=== PATIENT | male | born 1940 | race Caucasian/White ===

== ENCOUNTER 2023-02-12 13:35 | Inpatient (IN) | payer MEDICARE, BC ==
[2023-02-12 13:52] LABS: BASOPHILS ABSOLUTE AUTO 0.07 10^3/uL (0.00-0.50); BASOPHILS PERCENT AUTO 0.8 % (0-1); EOSINOPHILS ABSOLUTE AUTO 0.22 10^3/uL (0.00-1.50); EOSINOPHILS PERCENT AUTO 2.4 % (0-6); HEMATOCRIT 29.5 % (42.0-52.0); HEMOGLOBIN 9.2 g/dL (14.0-18.0); IMMATURE GRAN ABSOLUTE AUTO 0.01 10^3/uL (0.00-0.49); IMMATURE GRAN PERCENT AUTO 0.1 % (0.0-4.9); LYMPHOCYTES ABSOLUTE AUTO 0.79 10^3/uL (0.60-5.00); LYMPHOCYTES PERCENT AUTO 8.7 % (24-44); MEAN CORPUSCULAR HGB CONC 31.2 g/dL (32.0-36.0); MEAN CORPUSCULAR VOLUME 89.9 fL (83.0-97.0); MONOCYTES ABSOLUTE AUTO 0.65 10^3/uL (0.00-1.50); MONOCYTES PERCENT AUTO 7.1 % (0-10); NEUTROPHILS ABSOLUTE AUTO 7.39 x10^3/uL (1.80-8.00); NEUTROPHILS PERCENT AUTO 80.9 % (41-71); PLATELET COUNT,PLT 286 10^3/uL (150-400); RED BLOOD CELL COUNT 3.28 x10^6/uL (4.50-6.00); WHITE BLOOD CELL COUNT,WBC 9.1 10^3/uL (4.0-11.0)
[2023-02-12 14:08] LABS: ALANINE AMINOTRANSFERASE,ALT 40 U/L (12-78); ALBUMIN 2.3 g/dL (3.4-5.0); ALKALINE PHOSPHATASE 101 U/L (46-116); ASPARTATE AMNIOTRANSFERASE,AST 34 U/L (15-37); BILIRUBIN TOTAL 0.2 mg/dL (0.0-1.0); BLOOD UREA NITROGEN,BUN 60 mg/dL (7-18); C-REACTIVE PROTEIN 0.74 mg/dL (<=0.30); CALCIUM 8.1 mg/dL (8.4-10.1); CARBON DIOXIDE,CO2 24 mmol/L (21-32); CHLORIDE,CL 111 mEq/L (98-106); GLUCOSE RANDOM 153 mg/dL (75-99); POTASSIUM,K 4.2 mEq/L (3.5-5.0); PRO B-TYPE NATRIUR PEPT,BNPPRO 1341 pg/mL (0-1000); SODIUM,NA 143 mEq/L (136-145)
[2023-02-12 14:21] LABS: ESTIMATED GFR 14 mL/min (>=60)
[2023-02-12] MEDS ORDERED: Polyethylene Glycol 3350 Powder 17 GM Packet PO PRN (15:14)
[2023-02-12] MEDS ORDERED: Acetaminophen 325 MG Tab PO PRN (15:14)
[2023-02-12] MEDS ORDERED: Ondansetron 4 MG Tab.DIS PO PRN (15:14)
[2023-02-12] MEDS ORDERED: Ondansetron 4 MG/2 ML SDV IV PRN (15:14)
[2023-02-12] MEDS ORDERED: Docusate Sodium 100 MG Cap PO PRN (15:14)
[2023-02-12] MEDS ORDERED: Sodium Chloride 0.9% 1,000 ML IV ONE (15:30)
[2023-02-12 16:00] LABS: APPEARANCE,URINE CLOUDY (CLEAR); BILIRUBIN,URINE NEGATIVE (NEGATIVE); COLOR,URINE YELLOW (YELLOW); GLUCOSE,URINE 100 mg/dL (NEGATIVE); KETONES,URINE NEGATIVE (NEGATIVE); LEUKOCYTE ESTERASE,URINE NEGATIVE (NEGATIVE); NITRITE,URINE NEGATIVE (NEGATIVE); OCCULT BLOOD,URINE LARGE (NEGATIVE); PH,URINE 5.5 (4.5-8.0); PROTEIN,URINE >=300 mg/dL (NEGATIVE); UROBILINOGEN,URINE 0.2 EU/dL (0.2-1.0)
[2023-02-12] MEDS: Furosemide 20 MG/2 ML VIAL IVPUSH SCH (16:06)
[2023-02-12] MEDS: cefTRIAXone 1 GM Vial IVPUSH SCH (16:11)
[2023-02-12] MEDS: Azithromycin 250 MG Tab PO SCH (16:11)
[2023-02-12 17:05] LABS: RBC,URINE >100 /HPF (0-5)
[2023-02-12 17:06] LABS: BACTERIA,URINE MODERATE /HPF (NOT SEEN); SQUAMOUS EPITHELIAL CELLS,UR NOT SEEN /HPF (NOT SEEN)
[2023-02-12] MEDS ORDERED: Albuterol 6.7 GM Inhaler INH PRN (17:17)
[2023-02-12] MEDS: Albuterol/Ipratropium 3.0-0.5 MG/3 ML Neb Soln NEB PRN (18:36)
[2023-02-12] MEDS ORDERED: Ipratropium 0.02% 0.5 MG/2.5 ML Neb Soln INH SCH (20:00)
[2023-02-12] MEDS ORDERED: Formoterol/Mometasone 100-5 MCG 8.8 GM Inhaler IH SCH (20:00)
[2023-02-12] MEDS: atorvaSTATin 20 MG Tab PO SCH (20:10)
[2023-02-13] MEDS: Pantoprazole 40 MG Tab.CR PO SCH (06:37)
[2023-02-13] MEDS ORDERED: ALBUTEROL INH PRN (08:11)
[2023-02-13] MEDS: Aspirin 325 MG Tab PO SCH (08:20)
[2023-02-13] MEDS: Enoxaparin 30 MG/0.3 ML Syringe SUBCUT SCH (08:20)
[2023-02-13] MEDS: Azithromycin 250 MG Tab PO SCH (08:20)
[2023-02-13 08:21] LABS: BASOPHILS ABSOLUTE AUTO 0.07 10^3/uL (0.00-0.50); BASOPHILS PERCENT AUTO 0.9 % (0-1); EOSINOPHILS ABSOLUTE AUTO 0.29 10^3/uL (0.00-1.50); EOSINOPHILS PERCENT AUTO 3.6 % (0-6); HEMATOCRIT 25.8 % (42.0-52.0); IMMATURE GRAN ABSOLUTE AUTO 0.01 10^3/uL (0.00-0.49); IMMATURE GRAN PERCENT AUTO 0.1 % (0.0-4.9); LYMPHOCYTES ABSOLUTE AUTO 0.86 10^3/uL (0.60-5.00); LYMPHOCYTES PERCENT AUTO 10.8 % (24-44); MEAN CORPUSCULAR VOLUME 90.2 fL (83.0-97.0); MONOCYTES ABSOLUTE AUTO 0.65 10^3/uL (0.00-1.50); MONOCYTES PERCENT AUTO 8.2 % (0-10); NEUTROPHILS ABSOLUTE AUTO 6.07 x10^3/uL (1.80-8.00); NEUTROPHILS PERCENT AUTO 76.4 % (41-71); PLATELET COUNT,PLT 244 10^3/uL (150-400); RED BLOOD CELL COUNT 2.86 x10^6/uL (4.50-6.00)
[2023-02-13] MEDS: Furosemide 20 MG Tab PO SCH (08:21)
[2023-02-13] MEDS: Escitalopram 10 MG Tab PO SCH (08:21)
[2023-02-13] MEDS: amLODIPine 10 MG Tab PO SCH (08:21)
[2023-02-13] MEDS: Multivitamin Tab PO SCH (08:21)
[2023-02-13 08:34] LABS: CALCIUM 7.9 mg/dL (8.4-10.1); EST CRCL DRUG DOSING (CG) 15.2 mL/min; MAGNESIUM 1.7 mg/dL (1.8-2.4)
[2023-02-13 08:35] LABS: CREATININE 3.7 mg/dL (0.7-1.3)
[2023-02-13] MEDS: UMECLIDINIUM 62.5 MCG INH SCH (09:09)
[2023-02-13] MEDS: BUDESONIDE INH SCH ×2 (09:09→20:42)
[2023-02-13] MEDS: FORMOTEROL INH SCH ×2 (09:09→20:42)
[2023-02-13] MEDS ORDERED: Furosemide 40 MG/4 ML VIAL IVPUSH ONE (10:22)
[2023-02-13] MEDS ORDERED: Albumin Human 25 GM in Premix Bag 1 BAG IV ONE (10:22)
[2023-02-13] MEDS: Lactated Ringers 1,000 ML IV SCH ×2 (10:41→20:08)
[2023-02-13] MEDS: cefTRIAXone 1 GM Vial IVPUSH SCH (16:36)
[2023-02-13] MEDS: Albuterol/Ipratropium 3.0-0.5 MG/3 ML Neb Soln NEB PRN (16:36)
[2023-02-13] MEDS: Furosemide 20 MG/2 ML VIAL IVPUSH SCH (16:36)
[2023-02-13] MEDS: atorvaSTATin 20 MG Tab PO SCH (19:26)
[2023-02-13] MEDS ORDERED: Furosemide 20 MG/2 ML VIAL IVPUSH ONE (19:38)
[2023-02-14] MEDS: Pantoprazole 40 MG Tab.CR PO SCH (06:00)
[2023-02-14 07:39] LABS: BASOPHILS ABSOLUTE AUTO 0.07 10^3/uL (0.00-0.50); EOSINOPHILS ABSOLUTE AUTO 0.31 10^3/uL (0.00-1.50); EOSINOPHILS PERCENT AUTO 4.4 % (0-6); HEMATOCRIT 24.1 % (42.0-52.0); HEMOGLOBIN 7.6 g/dL (14.0-18.0); IMMATURE GRAN ABSOLUTE AUTO 0.02 10^3/uL (0.00-0.49); IMMATURE GRAN PERCENT AUTO 0.3 % (0.0-4.9); LYMPHOCYTES ABSOLUTE AUTO 0.93 10^3/uL (0.60-5.00); LYMPHOCYTES PERCENT AUTO 13.2 % (24-44); MEAN CORPUSCULAR HEMOGLOBIN 28.4 pg (27.0-32.0); MEAN CORPUSCULAR HGB CONC 31.5 g/dL (32.0-36.0); MEAN CORPUSCULAR VOLUME 89.9 fL (83.0-97.0); MONOCYTES ABSOLUTE AUTO 0.53 10^3/uL (0.00-1.50); MONOCYTES PERCENT AUTO 7.5 % (0-10); NEUTROPHILS ABSOLUTE AUTO 5.17 x10^3/uL (1.80-8.00); NEUTROPHILS PERCENT AUTO 73.6 % (41-71); PLATELET COUNT,PLT 218 10^3/uL (150-400); RED BLOOD CELL COUNT 2.68 x10^6/uL (4.50-6.00)
[2023-02-14 07:49] LABS: EST CRCL DRUG DOSING (CG) 15.23 mL/min; MAGNESIUM 1.7 mg/dL (1.8-2.4); POTASSIUM,K 3.7 mEq/L (3.5-5.0)
[2023-02-14] MEDS: Multivitamin Tab PO SCH (07:59)
[2023-02-14] MEDS: Escitalopram 10 MG Tab PO SCH (07:59)
[2023-02-14] MEDS: Azithromycin 250 MG Tab PO SCH (08:00)
[2023-02-14] MEDS: Aspirin 325 MG Tab PO SCH (08:00)
[2023-02-14] MEDS: Furosemide 20 MG Tab PO SCH (08:00)
[2023-02-14] MEDS: Enoxaparin 30 MG/0.3 ML Syringe SUBCUT SCH (08:00)
[2023-02-14] MEDS: UMECLIDINIUM 62.5 MCG INH SCH (08:15)
[2023-02-14] MEDS: FORMOTEROL INH SCH (08:15)
[2023-02-14] MEDS: BUDESONIDE INH SCH (08:15)
[2023-02-14] MEDS: amLODIPine 10 MG Tab PO SCH (08:17)
[2023-02-14 08:35] LABS: CREATININE 3.8 mg/dL (0.7-1.3)
[2023-02-14] MEDS ORDERED: Nitroglycerin/D5W 25 MG/250 ML BOTTLE IV SCH (10:30)
[2023-02-14] MEDS: Albuterol/Ipratropium 3.0-0.5 MG/3 ML Neb Soln NEB PRN (12:51)
[2023-02-14 12:59] VITALS: BP 128/71; PULSE 89
[2023-02-14] MEDS: cefTRIAXone 1 GM Vial IVPUSH SCH (15:32)
[2023-02-14] MEDS ORDERED: Furosemide 40 MG/4 ML VIAL IVPUSH SCH (16:00)
== END 2023-02-14 16:00 | DRG 683 ==
LOC: CC.FCMC 13:35 → CC.MS 13:35 → UNDOADMIN 15:05 → CC.MS 15:14
PROVIDERS: ADMIT Nurse Practitioner Family; ATTEND Nurse Practitioner
DX: N17.9 Acute kidney failure, unspecified (principal); J44.1 Chronic obstructive pulmonary disease with (acute) exacerbation; L03.114 Cellulitis of left upper limb; I50.9 Heart failure, unspecified; E78.00 Pure hypercholesterolemia, unspecified; I11.0 Hypertensive heart disease with heart failure; H54.7 Unspecified visual loss; Z88.0 Allergy status to penicillin; Z86.73 Personal history of transient ischemic attack (TIA), and cerebral infarction without residual deficits; Z79.82 Long term (current) use of aspirin; Z79.899 Other long term (current) drug therapy
CPT/HCPCS: 36415; 51702; 71045; 71046; 80048; 80053; 81001; 83735; 83880; 84484; 85025; 86140; 87070; 87077; 87186; 87205; 93005; 93010; 94640; 99223; 99233; 99239; A9270-GY; J0696; J1650; J1940; J3490; J7030; J7120; J7620-GY; P9047